=== PATIENT | female | born 1945 | race Caucasian/White ===

== ENCOUNTER 2018-01-21 10:00 | Emergency (ER) | payer MEDICARE, OTHER, SELFPAY ==
--- NOTE | 2018-01-21 10:02 | ED.SKABFB ---
HPI - Skin/Abscess/Foreign Bdy General Chief complaint: Skin/Abscess/Foreign Body Stated complaint: Groin Pain Time Seen by Provider: 01/21/18 10:01 Source: patient Mode of arrival: EMS Limitations: no limitations History of Present Illness HPI narrative: Received a phone call this morning from the patient's primary doctor from her nursing facility with concerns of patient's lower extremity cellulitis. Patient states that for the past several months she has had swelling and redness in her bilateral upper thighs. She states she has been told in the past that this was ???cellulitis??? was never placed on antibiotics. Apparently was evaluated at another hospital for another issue and was told that her symptoms were ???cellulitis ???again not placed on antibiotics. Was recently admitted to this nursing facility. Primary doctor states that she evaluated the patient this morning and did have concerns of cellulitis. Patient is a dialysis patient her last dialysis was Monday. Next I will assess is tomorrow. Related Data Home Medications Medication Instructions Recorded Confirmed darbepoetin cici in polysorbat 0.01 mg IJ #0 05/16/16 [Aranesp (in polysorbate)] [FULL SPECTRUM B] QDAY #0 08/12/16 Previous Rx's Medication Instructions Recorded furosemide 40 mg PO BID #180 tab 08/08/16 [tegaderm] TOPICAL EVERY TWO DAYS #10 09/13/16 gabapentin 100 mg PO HS #30 cap 12/15/16 carvedilol [Coreg] 3.125 mg PO BID #180 tab 01/31/17 ondansetron HCl 4 mg PO Q6HP PRN #30 tab 01/31/17 lisinopril 5 mg PO QDAY #90 tab 02/08/17 omeprazole magnesium [Prilosec OTC] 1 tab PO QDAY #90 cap 02/08/17 warfarin [Coumadin] 2.5 mg PO QDAY #15 tab 03/30/17 hydrocodone-acetaminophen 0 PO TIDP PRN #168 tab 04/20/17 warfarin 1 mg PO Q DAY #60 tab 04/27/17 clindamycin HCl 300 mg PO QID 7 Days #28 cap 01/21/18 Allergies Allergy/AdvReac Type Severity Reaction Status Date / Time atenolol Allergy Intermediate SOB Verified 01/21/18 12:01 fluoxetine Allergy Mild BLISTERS Verified 01/21/18 12:01 liraglutide [From VICTOZA] AdvReac Intermediate diarrhea Verified 01/21/18 12:01 alendronate sodium AdvReac Mild MYALGIAS Verified 01/21/18 12:01 atorvastatin AdvReac Mild COUGH Verified 01/21/18 12:01 phentermine AdvReac Mild MENTAL Verified 01/21/18 12:01 STATUS CHANGE topiramate AdvReac Mild MENTAL Verified 01/21/18 12:01 STATUS CHANGE pramipexole [PRAMIPEXOLE] AdvReac Unknown DEEP Verified 01/21/18 12:01 ULCERATED SORES Review of Systems Constitutional Denies chills, Denies fever(s), Denies lethargy and Denies weakness Gastrointestinal Gastrointestinal: Denies abdominal pain, Denies change in bowel habits, Denies diarrhea, Denies nausea and Denies vomiting Musculoskeletal Comments: Pain in thickening of the skin and warmth to bilateral inner thighs Integumentary/Breasts Comments: Pain and redness to bilateral inner thighs Neurologic Denies weakness Hematologic/Lymphatic Denies easy bruising PFSH Surgical History Status post cholecystectomy Status post parathyroidectomy Family History Father Diabetes mellitus Heart disease Hypertension High cholesterol Grandmother Cancer Mother Cancer Heart disease Hypertension High cholesterol Sister Age: 64 Diabetes mellitus Sister Age: 75 Diabetes mellitus Heart disease Hypertension Social History Smoking Status: Former smoker Exam Initial Vital Signs Initial Vital Signs: Vital Signs Temperature 98.0 F 01/21/18 10:10 Pulse Rate 93 H 01/21/18 10:10 Respiratory Rate 20 01/21/18 10:10 Blood Pressure 150/57 H 01/21/18 10:10 Pulse Oximetry 95 01/21/18 10:10 GI Inspection: non-distended Palpation: soft, no hepatosplenomegaly, No guarding, No pulsatile mass and No tender Skin Other: Patient with thickening of bilateral inner thighs with warmth and minimal redness. Does not extend into the vagina. Does have tenderness to palpation over the area. Does have some mild tenderness to palpation lower abdomen. No drainage. No vesicles. Neuro General: alert and oriented x3 Cognition: normal cognition Speech: speech normal Extrem Other: Patient able to move bilateral lower extremities knees and hips Course Orders Ordered: ED Orders 01/21/18 10:20 Basic Metabolic Panel Stat Complete Blood Count AUTO DIFF Stat Lactate (Lactic Acid) Stat 01/21/18 10:35 Blood Culture Stat Discontinued Medications Doxycycline Hyclate (Vibramycin) 100 mg PO NOW ONE Stop: 01/21/18 10:20 Last Admin: 01/21/18 10:39 Dose: 100 mg Clindamycin Phosphate (Cleocin) 600 mg in 50 mls @ 50 mls/hr IV NOW ONE Stop: 01/21/18 12:35 Last Admin: 01/21/18 12:11 Dose: 50 mls/hr Ondansetron HCl (Zofran Odt) 4 mg PO NOW ONE Stop: 01/21/18 10:20 Last Admin: 01/21/18 10:39 Dose: 4 mg Vital Signs - 8 hr 01/21/18 10:10 01/21/18 10:27 01/21/18 12:06 Temperature 98.0 F 98.0 F Pulse Rate 93 H 93 H 66 Respiratory Rate 20 20 18 Blood Pressure 150/57 H 150/57 H Blood Pressure [Left Wrist] 124/56 H Pulse Oximetry 95 95 95 MDM - Skin/Abscess/Foreign Bdy Lab Data Attestation: I reviewed the patient's lab results. Result diagrams: 01/21/18 10:20 01/21/18 10:20 Lab Results 01/21/18 01/21/18 01/21/18 Range/Units 10:20 10:20 10:20 WBC 5.2 (4.5-11.0) X10^3/uL RBC 3.28 L (4.0-5.2) X10^6/uL Hgb 11.1 L (12.0-16.0) g/dL Hct 32.5 L (36-46) % MCV 98.9 (80-100) fL MCH 33.7 (26-34) PG MCHC 34.1 (30-36) % RDW 14.8 (11.6-14.8) % Plt Count 128 L (150-400) X10^3/uL Neut % (Auto) 75.5 H (50-75) % Lymph % (Auto) 13.9 L (25-40) % [place] % (Auto) 9.2 (3-14) % Eos % (Auto) 0.9 L (2-4) % Baso % (Auto) 0.5 (0-2) % Neut # (Auto) 3900 (6542-5097) /uL Sodium 136 L (137-145) mmol/L Potassium 4.3 (3.4-5.1) mmol/L Chloride 93.0 L (98-107) mmol/L Carbon Dioxide 26.0 (22-32) mmol/L BUN 26.0 H (7-17) mg/dL Creatinine 4.90 H (0.52-1.04) mg/dL Estimated GFR 8.7 L (>60) mL/min BUN/Creatinine Ratio 5.3 L (6-22) Glucose 144 H (80-110) mg/dL Lactate 1.9 (0.7-2.1) mmol/L Calcium 9.4 (8.4-10.2) mg/dL MDM Narrative Medical decision making narrative: Patient has bilateral upper inner thigh thickening of the skin and redness. Patient states that has been going on for several months however worsening over the past couple days. She has had multiple doctors tell her that this is cellulitis. She is afebrile here does not have elevated white count. Lactate 1.9. Considered Pj gangrene however despite the location the rest of her history and physical exam is not consistent with this. Does not have pain out of proportion. Will hold on CT scan for now. Patient was given a dose of clindamycin here in the emergency department. Will send home with oral clindamycin. She is scheduled for dialysis tomorrow. She was given return precautions. She expressed understanding and agreement with plan Discharge Plan Departure Patient Disposition: Home, Self-Care Clinical Impression: Cellulitis Instructions: DI for Cellulitis -- Adult Activity Restrictions/Additional Instructions: Keep your dialysis appointment tomorrow. Start your antibiotics tomorrow as directed. Return to the emergency department for any new or worsening symptoms Prescriptions: New clindamycin HCl 300 mg capsule 300 mg PO QID 7 Days Qty: 28 RF: 0 No Action darbepoetin cici in polysorbat [Aranesp (in polysorbate)] 10 MCG/0.4 ML syringe 0.01 mg IJ Qty: 0 RF: 0 furosemide 40 MG tablet 40 mg PO BID Qty: 180 RF: 0 [FULL SPECTRUM B] QDAY Qty: 0 RF: 0 [tegaderm] Topical EVERY TWO DAYS Qty: 10 RF: 0 gabapentin 100 MG capsule 100 mg PO HS Qty: 30 RF: 1 ondansetron HCl 4 MG tablet 4 mg PO Q6HP PRNQty: 30 RF: 1 carvedilol [Coreg] 3.125 MG tablet 3.125 mg PO BID Qty: 180 RF: 1 lisinopril 5 MG tablet 5 mg PO QDAY Qty: 90 RF: 1 omeprazole magnesium [Prilosec OTC] 20 MG tablet,delayed release (DR/EC) 1 tab PO QDAY Qty: 90 RF: 1 warfarin [Coumadin] 5 MG tablet 2.5 mg PO QDAY Qty: 15 RF: 0 hydrocodone-acetaminophen 5 MG/325 MG tablet PO TIDP PRNQty: 168 RF: 0 warfarin 1 MG tablet 1 mg PO Q DAY Qty: 60 RF: 0
[2018-01-21 10:10] VITALS: BP 150/57; PULSE 93; RESP 20; TEMP 36.7; O2SAT 95
[2018-01-21 10:27] VITALS: BP 150/57; PULSE 93; RESP 20; TEMP 36.7; O2SAT 95
[2018-01-21 10:31] LABS: Add Manual Diff / Slide Review NO; Basophils Percent Auto 0.5 % (0-2); Eosinophils Percent Auto 0.9 % (2-4); Hematocrit 32.5 % (36-46); Hemoglobin 11.1 g/dL (12.0-16.0); Lymphocytes Percent Auto 13.9 % (25-40); Mean Corpuscular HGB Conc 34.1 % (30-36); Mean Corpuscular Hemoglobin 33.7 PG (26-34); Mean Corpuscular Volume 98.9 fL (80-100); Monocytes Percent Auto 9.2 % (3-14); Neutrophils Absolute Auto 3900 /uL (3000-5900); Neutrophils Percent Auto 75.5 % (50-75); Platelet Count 128 X10^3/uL (150-400); Red Blood Cell Count 3.28 X10^6/uL (4.0-5.2); Red Cell Distribution Width 14.8 % (11.6-14.8); White Blood Cell Count 5.2 X10^3/uL (4.5-11.0)
[2018-01-21] MEDS: ONDANSETRON 4 MG ODT PO (10:39)
[2018-01-21] MEDS: DOXYCYCLINE HYCLATE 100 MG TABLET PO (10:39)
[2018-01-21 10:49] LABS: BUN Creatinine Ratio 5.3 (6-22); Calcium 9.4 mg/dL (8.4-10.2); Estimated Glomerular Filt Rate 8.7 mL/min (>60); Glucose 144 mg/dL (80-110); HEMOLYSIS < 15 (0-50); Lactate (Lactic Acid) 1.9 mmol/L (0.7-2.1); Potassium 4.3 mmol/L (3.4-5.1); Sodium 136 mmol/L (137-145)
[2018-01-21 12:06] VITALS: BP 124/56; PULSE 66; RESP 18; O2SAT 95
[2018-01-21] MEDS: CLINDAMYCIN 600 MG/50 ML PIGGYBACK 50 MG IV (12:11)
[2018-01-21 13:18] VITALS: BP 118/57; PULSE 72; RESP 20; TEMP 36.6; O2SAT 94
[2018-01-21 13:19] VITALS: BP 123/84; PULSE 68; RESP 16; O2SAT 97
== END 2018-01-21 13:47 | disposition home or self-care (01) ==
PROVIDERS: Emergency Provider Emergency Medicine
DX: L03.116 Cellulitis of left lower limb (principal); L03.115 Cellulitis of right lower limb
CPT/HCPCS: 36415; 36591; 80048; 83605; 85025; 87040; 96365; 99282; 99284

== ENCOUNTER 2018-03-02 13:24 | Emergency (ER) | payer MEDICARE, OTHER, SELFPAY ==
[2018-03-02 13:39] VITALS: BP 143/75; PULSE 70; RESP 16; TEMP 36.3; O2SAT 96
--- NOTE | 2018-03-02 15:43 | ED.LOWEXIN ---
HPI - Extremity Injury (Lower) <Rossana Pagan PA-C - Last Filed: 03/02/18 22:54> General Chief Complaint: Extremity Injury, Lower Stated Complaint: SLICED TOES OPEN Time Seen by Provider: 03/02/18 15:46 Source: patient Mode of arrival: wheelchair Limitations: no limitations History of Present Illness HPI Narrative: This 72-year-old female comes in today due to bleeding and bruising on her right foot toes. She states that she was in her power chair on Monday when she ran into a kitchen cupboard. She describes the toes being somewhat flexed at the time. She states that she has not had any pain but really does not have good sensation there due to neuropathy. She states that she had a previous injury and bone removed from the middle toe on that foot due to an old fracture. She did not have any other injury. She states that she has had some bleeding around the great toenail and bruising, and a skin tear on the bottom of the great toe. She states that her foot looks the same as it did a few days ago. She has not had any fever and has been going about her normal activities, however home health nurse saw her foot yesterday and was concerned about it so advised her to come to the ER. She states that she came today instead just due to coming over for dialysis anyway today. She denies any other new symptoms or complaints. She thinks her last INR was therapeutic. Related Data Home Medications Medication Instructions Recorded Confirmed [FULL SPECTRUM B] 1 tab PO QDAY #0 08/12/16 03/02/18 ascorbic acid (vitamin C) [Vitamin 125 mg PO QNOON 03/02/18 03/02/18 C] folic acid 1 tab PO QNOON 03/02/18 03/02/18 furosemide See Label Instructions .ROUTE 03/02/18 03/02/18 .COMPLEX gabapentin 100 mg PO TID 03/02/18 03/02/18 hydrocodone-acetaminophen 1 - 2 tab PO Q4H PRN 03/02/18 03/02/18 lisinopril 5 mg PO QPM 03/02/18 03/02/18 ondansetron HCl 4 mg PO Q6HP PRN 03/02/18 03/02/18 ranitidine HCl 150 mg PO BID 03/02/18 03/02/18 sevelamer carbonate [Renvela] 2 tab PO TID 03/02/18 03/02/18 triamcinolone acetonide 1 applic TOPICAL BID 03/02/18 03/02/18 warfarin 3 mg PO QPM 03/02/18 03/02/18 Previous Rx's Medication Instructions Recorded omeprazole magnesium [Prilosec OTC] 1 tab PO QDAY #90 cap 02/08/17 cephalexin [Keflex] 500 mg PO QID #20 cap 03/02/18 Allergies Allergy/AdvReac Type Severity Reaction Status Date / Time atenolol Allergy Intermediate SOB Verified 03/02/18 13:42 fluoxetine Allergy Mild BLISTERS Verified 03/02/18 13:42 liraglutide [From VICTOZA] AdvReac Intermediate diarrhea Verified 03/02/18 13:42 alendronate sodium AdvReac Mild MYALGIAS Verified 03/02/18 13:42 atorvastatin AdvReac Mild COUGH Verified 03/02/18 13:42 phentermine AdvReac Mild MENTAL Verified 03/02/18 13:42 STATUS CHANGE topiramate AdvReac Mild MENTAL Verified 03/02/18 13:42 STATUS CHANGE pramipexole [PRAMIPEXOLE] AdvReac Unknown DEEP Verified 03/02/18 13:42 ULCERATED SORES Review of Systems <Rossana Pagan PA-C - Last Filed: 03/02/18 22:54> Review of Systems All systems reviewed & are unremarkable except as noted in HPI and below Exam <Rossana Pagan PA-C - Last Filed: 03/02/18 22:54> Narrative Exam Narrative: GENERAL APPEARANCE: Patient sitting comfortably, in no distress. LUNGS: Clear to auscultation bilaterally. HEART: Rate and rhythm regular without murmur, normal S1 and S2, no S3 or S4. EXTREMITIES: Both lower extremities are ruborous with brown stasis discoloration and mild pitting to the inferior shins. 2+ right PT and DP pulses, no calf TTP DERM: There is a 1cm shallow nummular ulceration on the right great put toe pad. The nail is thickened and discolored and there is dried blood surrounding. It is slightly loose. There is ecchymoses at the tip of the toe. There is also scabbing and patches of ecchymoses on the 2nd to 4th distal toes, none over the foot MUSCULOSKELETAL: Right foot she is able to flex and extend the toes. No tenderness to palpation. No tenderness over the ankle. Right 3rd toe is shortened Initial Vital Signs Initial Vital Signs: Vital Signs Temperature 97.3 F L 03/02/18 13:39 Pulse Rate 70 03/02/18 13:39 Respiratory Rate 16 03/02/18 13:39 Blood Pressure 143/75 H 03/02/18 13:39 Pulse Oximetry 96 03/02/18 13:39 <Raquel Clinton DO - Last Filed: 03/06/18 08:46> Initial Vital Signs Initial Vital Signs: Vital Signs Temperature 97.3 F L 03/02/18 13:39 Pulse Rate 70 03/02/18 13:39 Respiratory Rate 16 03/02/18 13:39 Blood Pressure 143/75 H 03/02/18 13:39 Pulse Oximetry 96 03/02/18 13:39 Course <Rossana Pagan PA-C - Last Filed: 03/02/18 22:54> Additional Information: Patient does not appear to have any new fracture but has subacute fractures. She was given an orthopedic shoe for this and advised to follow up with her PCP. Advised to avoid as much weight-bearing as possible and use her scooter. I think that her skin changes are mainly due to venous stasis with some new contusions, no clear evidence of cellulitis at this point but she does have an ulceration and some small open wounds due to the contusions. She is high risk due to her underlying conditions, so was given a prescription for cephalexin to start. She agreed to return if worsening over the weekend, otherwise agrees to follow up with her PCP or early next week. Orders Ordered: ED Orders 03/02/18 15:50 Prothrombin Time INR Stat 03/02/18 15:55 XR foot RT min 3V Stat Vital Signs - 8 hr 03/02/18 17:30 Pulse Rate 65 Respiratory Rate 18 Blood Pressure 119/49 L Pulse Oximetry 100 <Raquel Clinton DO - Last Filed: 03/06/18 08:46> Orders Ordered: ED Orders 03/02/18 15:50 Prothrombin Time INR Stat 03/02/18 15:55 XR foot RT min 3V Stat Vital Signs - 8 hr 03/02/18 17:30 Pulse Rate 65 Respiratory Rate 18 Blood Pressure 119/49 L Pulse Oximetry 100 MDM - Extremity Injury (Lower) <Rossana Pagan PA-C - Last Filed: 03/02/18 22:54> Lab Data Lab Results 03/02/18 Range/Units 15:50 PT 26.2 H (10.1-12.7) SECONDS INR 2.4 H (0.9-1.3) Imaging Data foot: Radiologist's impression: View Report History [address] [address] XRay Report Signed Patient: Sosa Baca MR#: [id number] : 1945 Acct:[id number] Age/Sex: 72 / F Date of Service: 03/02/18 Loc: ED Accession Number: [id number] Procedure: XR foot RT min 3V Ordering Provider: Rossana Pagan P.A-C PROCEDURE: XR FOOT RT MIN 3V INDICATIONS: 72 year-old female with right foot contusion. TECHNIQUE: 3 views of the foot were acquired. COMPARISON: [facility] [place], CR, XR FOOT 3VW RT, 12/07/2016, 14:53. [facility] [place], CR, XR TOE(S) 2VW RT, 11/16/2016, 15:03. FINDINGS: Bones: Subacute fractures of the second and third metatarsal heads appear new since December 2016. Medial malleolar and distal fibular fracture fixation hardware is again noted. Patient is status post resection of the third proximal and middle phalangeal heads as before. No suspicious bony lesions. Soft tissues: No tibiotalar joint effusion. Achilles tendon appears normal. There is widespread small vessel atherosclerosis, consistent with background diabetes mellitus and/or hyperparathyroidism. IMPRESSION: Subacute second and third metatarsal neck fractures appear new since 2016. Dictated by: Simone Moody M.D. on 03/02/2018 at 16:25 Approved by: Simone Moody M.D. on 03/02/2018 at 16:28 <Raquel Clinton DO - Last Filed: 03/06/18 08:46> Lab Data Lab Results 03/02/18 Range/Units 15:50 PT 26.2 H (10.1-12.7) SECONDS INR 2.4 H (0.9-1.3) Discharge Plan Departure Patient Disposition: Home, Self-Care Clinical Impression: Contusion of foot including toes Discharge Date/Time: 03/02/18 17:44 Interventions: ED Discharge Assessment Last Done: 03/02/18 17:30 Instructions: DI for Cellulitis -- Adult Activity Restrictions/Additional Instructions: It does not appear that you have any new breaks in your toes, but it looks like you have some fairly recent ones further back in the 2nd and 3rd metatarsal bones in your foot. These look new in the last year. I have given you a surgical shoe to wear to help protect your foot, and please avoid putting too much stress or walking on this a lot until you follow up for recheck with Dr. Melvin. I agree with you that the skin changes in your legs and feet are old due to vein problems, however I have also given you a few days of antibiotic in case there is the start of an early skin infection due to the breaks in your skin from hitting your foot. I [facility] to [facility] for [facility]. I have given you the instructions for cellulitis so you will know what to monitor for, and as we talked about, you should return over the weekend if any acutely worsening symptoms, or new problems such as fever. You may lose the big toenail, soaking it may help loosen it more easily. Prescriptions: New cephalexin [Keflex] 500 mg capsule 500 mg PO QID Qty: 20 RF: 0 No Action [FULL SPECTRUM B] 1 tab PO QDAY Qty: 0 RF: 0 omeprazole magnesium [Prilosec OTC] 20 MG tablet,delayed release (DR/EC) 1 tab PO QDAY Qty: 90 RF: 1 folic acid 400 mcg tablet 1 tab PO QNOON RF: 0 triamcinolone acetonide 0.1 % cream 1 applic Topical BID RF: 0 warfarin 3 mg tablet 3 mg PO QPM RF: 0 furosemide 80 mg tablet See Label Instructions .ROUTE .COMPLEX RF: 0 ranitidine HCl 150 mg tablet 150 mg PO BID RF: 0 gabapentin 100 mg capsule 100 mg PO TID RF: 0 ascorbic acid (vitamin C) [Vitamin C] 250 mg Tablet 125 mg PO QNOON RF: 0 sevelamer carbonate [Renvela] 800 mg Tablet 2 tab PO TID RF: 0 hydrocodone-acetaminophen 5 MG/325 MG tablet 1 - 2 tab PO Q4H PRN (Reason: Pain, Moderate) RF: 0 ondansetron HCl 4 MG tablet 4 mg PO Q6HP PRN (Reason: Nausea And Vomiting) RF: 0 lisinopril 5 MG tablet 5 mg PO QPM RF: 0 Referrals: Kaz Melvin MD [Primary Care Provider] - <Raquel Clinton DO - Last Filed: 03/06/18 08:46> Cosign ED Attending Lulyature Attestation: I was immediately available in the department for consultation. Documentation has been reviewed. I agree with assessment and plan.
--- NOTE | 2018-03-02 15:55 | DI.RAD.S_ITS ---
PROCEDURE: XR FOOT RT MIN 3V INDICATIONS: 72 year-old female with right foot contusion. TECHNIQUE: 3 views of the foot were acquired. COMPARISON: [facility] [place], CR, XR FOOT 3VW RT, 12/07/2016, 14:53. [facility] [place], CR, XR TOE(S) 2VW RT, 11/16/2016, 15:03. FINDINGS: Bones: Subacute fractures of the second and third metatarsal heads appear new since December 2016. Medial malleolar and distal fibular fracture fixation hardware is again noted. Patient is status post resection of the third proximal and middle phalangeal heads as before. No suspicious bony lesions. Soft tissues: No tibiotalar joint effusion. Achilles tendon appears normal. There is widespread small vessel atherosclerosis, consistent with background diabetes mellitus and/or hyperparathyroidism. IMPRESSION: Subacute second and third metatarsal neck fractures appear new since 2016. Dictated by: Simone Moody M.D. on 03/02/2018 at 16:25 Approved by: Simone Moody M.D. on 03/02/2018 at 16:28
[2018-03-02 16:08] LABS: INR 2.4 (0.9-1.3); Prothrombin Time 26.2 SECONDS (10.1-12.7)
--- NOTE | 2018-03-02 16:09 | ED_ITS ---
HPI - Extremity Injury (Lower) <Rossana Pagan PA-C - Last Filed: 03/02/18 22:54> General Chief Complaint: Extremity Injury, Lower Stated Complaint: SLICED TOES OPEN Time Seen by Provider: 03/02/18 15:46 Source: patient Mode of arrival: wheelchair Limitations: no limitations History of Present Illness HPI Narrative: This 72-year-old female comes in today due to bleeding and bruising on her right foot toes. She states that she was in her power chair on Monday when she ran into a kitchen cupboard. She describes the toes being somewhat flexed at the time. She states that she has not had any pain but really does not have good sensation there due to neuropathy. She states that she had a previous injury and bone removed from the middle toe on that foot due to an old fracture. She did not have any other injury. She states that she has had some bleeding around the great toenail and bruising, and a skin tear on the bottom of the great toe. She states that her foot looks the same as it did a few days ago. She has not had any fever and has been going about her normal activities, however home health nurse saw her foot yesterday and was concerned about it so advised her to come to the ER. She states that she came today instead just due to coming over for dialysis anyway today. She denies any other new symptoms or complaints. She thinks her last INR was therapeutic. Related Data Home Medications Medication Instructions Recorded Confirmed [FULL SPECTRUM B] 1 tab PO QDAY #0 08/12/16 03/02/18 ascorbic acid (vitamin C) [Vitamin 125 mg PO QNOON 03/02/18 03/02/18 C] folic acid 1 tab PO QNOON 03/02/18 03/02/18 furosemide See Label Instructions .ROUTE 03/02/18 03/02/18 .COMPLEX gabapentin 100 mg PO TID 03/02/18 03/02/18 hydrocodone-acetaminophen 1 - 2 tab PO Q4H PRN 03/02/18 03/02/18 lisinopril 5 mg PO QPM 03/02/18 03/02/18 ondansetron HCl 4 mg PO Q6HP PRN 03/02/18 03/02/18 ranitidine HCl 150 mg PO BID 03/02/18 03/02/18 sevelamer carbonate [Renvela] 2 tab PO TID 03/02/18 03/02/18 triamcinolone acetonide 1 applic TOPICAL BID 03/02/18 03/02/18 warfarin 3 mg PO QPM 03/02/18 03/02/18 Previous Rx's Medication Instructions Recorded omeprazole magnesium [Prilosec OTC] 1 tab PO QDAY #90 cap 02/08/17 cephalexin [Keflex] 500 mg PO QID #20 cap 03/02/18 Allergies Allergy/AdvReac Type Severity Reaction Status Date / Time atenolol Allergy Intermediate SOB Verified 03/02/18 13:42 fluoxetine Allergy Mild BLISTERS Verified 03/02/18 13:42 liraglutide [From VICTOZA] AdvReac Intermediate diarrhea Verified 03/02/18 13:42 alendronate sodium AdvReac Mild MYALGIAS Verified 03/02/18 13:42 atorvastatin AdvReac Mild COUGH Verified 03/02/18 13:42 phentermine AdvReac Mild MENTAL Verified 03/02/18 13:42 STATUS CHANGE topiramate AdvReac Mild MENTAL Verified 03/02/18 13:42 STATUS CHANGE pramipexole [PRAMIPEXOLE] AdvReac Unknown DEEP Verified 03/02/18 13:42 ULCERATED SORES Review of Systems <Rossana Pagan PA-C - Last Filed: 03/02/18 22:54> Review of Systems All systems reviewed & are unremarkable except as noted in HPI and below Exam <Rossana Pagan PA-C - Last Filed: 03/02/18 22:54> Narrative Exam Narrative: GENERAL APPEARANCE: Patient sitting comfortably, in no distress. LUNGS: Clear to auscultation bilaterally. HEART: Rate and rhythm regular without murmur, normal S1 and S2, no S3 or S4. EXTREMITIES: Both lower extremities are ruborous with brown stasis discoloration and mild pitting to the inferior shins. 2+ right PT and DP pulses , no calf TTP DERM: There is a 1cm shallow nummular ulceration on the right great put toe pad. The nail is thickened and discolored and there is dried blood surrounding. It is slightly loose. There is ecchymoses at the tip of the toe. There is also scabbing and patches of ecchymoses on the 2nd to 4th distal toes , none over the foot MUSCULOSKELETAL: Right foot she is able to flex and extend the toes. No tenderness to palpation. No tenderness over the ankle. Right 3rd toe is shortened Initial Vital Signs Initial Vital Signs: Vital Signs Temperature 97.3 F L 03/02/18 13:39 Pulse Rate 70 03/02/18 13:39 Respiratory Rate 16 03/02/18 13:39 Blood Pressure 143/75 H 03/02/18 13:39 Pulse Oximetry 96 03/02/18 13:39 <Raquel Clinton DO - Last Filed: 03/06/18 08:46> Initial Vital Signs Initial Vital Signs: Vital Signs Temperature 97.3 F L 03/02/18 13:39 Pulse Rate 70 03/02/18 13:39 Respiratory Rate 16 03/02/18 13:39 Blood Pressure 143/75 H 03/02/18 13:39 Pulse Oximetry 96 03/02/18 13:39 Course <Rossana Pagan PA-C - Last Filed: 03/02/18 22:54> Additional Information: Patient does not appear to have any new fracture but has subacute fractures. She was given an orthopedic shoe for this and advised to follow up with her PCP. Advised to avoid as much weight-bearing as possible and use her scooter. I think that her skin changes are mainly due to venous stasis with some new contusions, no clear evidence of cellulitis at this point but she does have an ulceration and some small open wounds due to the contusions. She is high risk due to her underlying conditions, so was given a prescription for cephalexin to start. She agreed to return if worsening over the weekend, otherwise agrees to follow up with her PCP or early next week. Orders Ordered: ED Orders 03/02/18 15:50 Prothrombin Time INR Stat 03/02/18 15:55 XR foot RT min 3V Stat Vital Signs - 8 hr 03/02/18 17:30 Pulse Rate 65 Respiratory Rate 18 Blood Pressure 119/49 L Pulse Oximetry 100 <Raquel Clinton DO - Last Filed: 03/06/18 08:46> Orders Ordered: ED Orders 03/02/18 15:50 Prothrombin Time INR Stat 03/02/18 15:55 XR foot RT min 3V Stat Vital Signs - 8 hr 03/02/18 17:30 Pulse Rate 65 Respiratory Rate 18 Blood Pressure 119/49 L Pulse Oximetry 100 MDM - Extremity Injury (Lower) <Rossana Pagan PA-C - Last Filed: 03/02/18 22:54> Lab Data Lab Results 03/02/18 Range/Units 15:50 PT 26.2 H (10.1-12.7) SECONDS INR 2.4 H (0.9-1.3) Imaging Data foot: Radiologist's impression: View Report History [address] [address] XRay Report Signed Patient: Sosa Baca MR#: [id number] : 1945 Acct:[id number] Age/Sex: 72 / F Date of Service: 03/02/18 Loc: ED Accession Number: [id number] Procedure: XR foot RT min 3V Ordering Provider: Rossana Pagan P.A-C PROCEDURE: XR FOOT RT MIN 3V INDICATIONS: 72 year-old female with right foot contusion. TECHNIQUE: 3 views of the foot were acquired. COMPARISON: [facility] [place], CR, XR FOOT 3VW RT, 2016, 14:53. [facility] [place], CR, XR TOE(S) 2VW RT, 11/16/2016, 15:03. FINDINGS: Bones: Subacute fractures of the second and third metatarsal heads appear new since December 2016. Medial malleolar and distal fibular fracture fixation hardware is again noted. Patient is status post resection of the third proximal and middle phalangeal heads as before. No suspicious bony lesions. Soft tissues: No tibiotalar joint effusion. Achilles tendon appears normal. There is widespread small vessel atherosclerosis, consistent with background diabetes mellitus and/or hyperparathyroidism. IMPRESSION: Subacute second and third metatarsal neck fractures appear new since 2016. Dictated by: Simone Moody M.D. on 03/02/2018 at 16:25 Approved by: Simone Moody M.D. on 03/02/2018 at 16:28 <Raquel Clinton DO - Last Filed: 03/06/18 08:46> Lab Data Lab Results 03/02/18 Range/Units 15:50 PT 26.2 H (10.1-12.7) SECONDS INR 2.4 H (0.9-1.3) Discharge Plan Departure Patient Disposition: Home, Self-Care Clinical Impression: Contusion of foot including toes Discharge Date/Time: 03/02/18 17:44 Interventions: ED Discharge Assessment Last Done: 03/02/18 17:30 Instructions: DI for Cellulitis -- Adult Activity Restrictions/Additional Instructions: It does not appear that you have any new breaks in your toes, but it looks like you have some fairly recent ones further back in the 2nd and 3rd metatarsal bones in your foot. These look new in the last year. I have given you a surgical shoe to wear to help protect your foot, and please avoid putting too much stress or walking on this a lot until you follow up for recheck with Dr. Melvin. I agree with you that the skin changes in your legs and feet are old due to vein problems, however I have also given you a few days of antibiotic in case there is the start of an early skin infection due to the breaks in your skin from hitting your foot. I [facility] to [facility] for [facility]. I have given you the instructions for cellulitis so you will know what to monitor for, and as we talked about, you should return over the weekend if any acutely worsening symptoms, or new problems such as fever. You may lose the big toenail , soaking it may help loosen it more easily. Prescriptions: New cephalexin [Keflex] 500 mg capsule 500 mg PO QID Qty: 20 RF: 0 No Action [FULL SPECTRUM B] 1 tab PO QDAY Qty: 0 RF: 0 omeprazole magnesium [Prilosec OTC] 20 MG tablet,delayed release (DR/EC) 1 tab PO QDAY Qty: 90 RF: 1 folic acid 400 mcg tablet 1 tab PO QNOON RF: 0 triamcinolone acetonide 0.1 % cream 1 applic Topical BID RF: 0 warfarin 3 mg tablet 3 mg PO QPM RF: 0 furosemide 80 mg tablet See Label Instructions .ROUTE .COMPLEX RF: 0 ranitidine HCl 150 mg tablet 150 mg PO BID RF: 0 gabapentin 100 mg capsule 100 mg PO TID RF: 0 ascorbic acid (vitamin C) [Vitamin C] 250 mg Tablet 125 mg PO QNOON RF: 0 sevelamer carbonate [Renvela] 800 mg Tablet 2 tab PO TID RF: 0 hydrocodone-acetaminophen 5 MG/325 MG tablet 1 - 2 tab PO Q4H PRN (Reason: Pain, Moderate) RF: 0 ondansetron HCl 4 MG tablet 4 mg PO Q6HP PRN (Reason: Nausea And Vomiting) RF: 0 lisinopril 5 MG tablet 5 mg PO QPM RF: 0 Referrals: Kaz Melvin MD [Primary Care Provider] - <Raquel Clinton DO - Last Filed: 03/06/18 08:46> Cosign ED Attending Lulyature Attestation: I was immediately available in the department for consultation. Documentation has been reviewed. I agree with assessment and plan.
[2018-03-02 17:30] VITALS: BP 119/49; PULSE 65; RESP 18; O2SAT 100
== END 2018-03-02 17:44 | disposition home or self-care (01) ==
PROVIDERS: Emergency Provider Internal Medicine; PCP Family Medicine
DX: S90.31XA Contusion of right foot, initial encounter (principal); W22.8XXA Striking against or struck by other objects, initial encounter
CPT/HCPCS: 36591; 73630; 85610; 99283; 99284